=== PATIENT | female | born 1960 | race Caucasian/White ===

== ENCOUNTER 2016-06-03 18:32 | Emergency (ER) | payer OTHER ==
[2016-06-03 20:54] LABS: HEMOGLOBIN 15.2 gm/dl (12.3-15.3); RED BLOOD COUNT 4.44 M/UL (4.00-5.10)
[2016-06-03 21:23] LABS: BUN/CREATININE RATIO 18 (0-10)
== END 2016-06-03 22:45 | disposition home or self-care (01) ==
LOC: ER1 18:32
PROVIDERS: Physician Assistant Medical
DX: L03.211 Cellulitis of face (principal); L98.9 Disorder of the skin and subcutaneous tissue, unspecified; M79.7 Fibromyalgia; I10 Essential (primary) hypertension; J44.9 Chronic obstructive pulmonary disease, unspecified; E78.5 Hyperlipidemia, unspecified; F17.210 Nicotine dependence, cigarettes, uncomplicated; Z88.0 Allergy status to penicillin; Z88.2 Allergy status to sulfonamides; Z79.891 Long term (current) use of opiate analgesic; Z79.899 Other long term (current) drug therapy
CPT/HCPCS: 70487; 80053; 85025; 99283; J7050; Q9962